=== PATIENT | female | born 1990 | race Caucasian/White ===

== ENCOUNTER 2023-01-27 09:12 | Outpatient (CLI) | payer OTHER | END 2023-01-27 09:30 | disposition home or self-care (01) | LOC: RAD 09:12 | PROVIDERS: ATTEND Specialist | DX: N88.3 Incompetence of cervix uteri (principal) ==

== ENCOUNTER 2025-03-06 13:45 | Inpatient (IN) | payer OTHER ==
[~2025-03-06] VITALS: Ht 154.9 cm; Wt 66.2 kg
[2025-03-20 14:23] VITALS: BP 110/66
[2025-03-20 14:45] LABS: BASO % 0.2 % (0.1-1.2); EOS # 0.10 (0.04-0.54); EOS % 1.1 % (0.7-7.0); LYMPH # 2.12 (1.18-3.74); LYMPH % 24.1 % (19.3-53.1); MEAN PLATELET VOLUME 10.70 fl (9.4-12.4); MONO # 0.61 (0.24-0.82); MONO % 6.9 % (4.7-12.5); NEUT # 5.91 (1.56-6.13); NEUT % 67.5 % (34.0-71.1); RED CELL DISTRIBUTION WIDTH 13.1 % (11.6-14.4)
[2025-03-20 15:15] VITALS: BP 113/69
[2025-03-20 15:28] LABS: INR < 0.93
[2025-03-20 15:29] LABS: ALT/SGPT 28.0 U/L (12-78); AST/SGOT 21.0 U/L (15-37); BILIRUBIN TOTAL 0.32 mg/dL (0.3-1.2); BUN CREA RATIO 16.0 (7.0-25.0); CREATININE SERUM 0.56 mg/dL (0.55-1.02); GFR 124.67; GLOBULINA 3.7 G/DL (2.4-3.5); GLUCOSE FASTING 85.0 mg/dL (65-100); OSMOLALITY SERUM 275.0 MOSM/KG (275-295)
[2025-03-20] MEDS ORDERED: RINGERS SOLUTION,LACTATED 1,000 ML IV SCH (15:45)
[2025-03-20] MEDS ORDERED: MISOPROSTOL 25 MCG TABLET VAG NR (15:45)
[2025-03-20 19:30] VITALS: BP 118/70
[2025-03-20] MEDS ORDERED: MORPHINE SULFATE 4 MG/ML VIAL IV ONE (22:00)
[2025-03-20 23:31] VITALS: BP 111/63; O2SAT 100
[2025-03-21] VITALS (8 sets, daily range): BP systolic 98–139; BP diastolic 59–78
[2025-03-21] MEDS ORDERED: MORPHINE SULFATE 4 MG/ML VIAL IV ONE (02:00)
[2025-03-21] MEDS ORDERED: CITRIC ACID/SODIUM CITRATE 30 ML BLIST.PACK PO ONE (02:30)
[2025-03-21] MEDS ORDERED: OXYTOCIN 500 ML IV SCH (09:00)
[2025-03-21] MEDS ORDERED: PRENATE CHEWABLE1 MG PO (10:22)
[2025-03-21] MEDS ORDERED: CHLORHEXIDINE GLUCONATE 120 ML BOTTLE TOP ONE (13:30)
[2025-03-21] MEDS ORDERED: OXYTOCIN 1,000 ML IV SCH (13:30)
[2025-03-21] MEDS ORDERED: ERYTHROMYCIN BASE OPHT 1GM EACH TUBE OP ONE (14:30)
[2025-03-21] MEDS ORDERED: LIDOCAINE HCL 1% 10ML VIAL IJ ONE (14:30)
[2025-03-22 02:28] VITALS: BP 115/72
[2025-03-22 06:25] LABS: BASO % 0.1 % (0.1-1.2); EOS # 0.07 (0.04-0.54); EOS % 0.4 % (0.7-7.0); LYMPH # 2.55 (1.18-3.74); LYMPH % 15.6 % (19.3-53.1); MEAN PLATELET VOLUME 10.70 fl (9.4-12.4); MONO # 0.93 (0.24-0.82); MONO % 5.7 % (4.7-12.5); NEUT # 12.69 (1.56-6.13); NEUT % 77.8 % (34.0-71.1); RED CELL DISTRIBUTION WIDTH 13.2 % (11.6-14.4)
[2025-03-22 08:00] VITALS: BP 113/73
[2025-03-22] MEDS ORDERED: PNV,CALCIUM 72/IRON/FOLIC ACID 1 TAB TABLET PO SCH (09:00)
[2025-03-22] MEDS ORDERED: FERROUS SULFATE 325 MG TABLET.EC PO SCH (16:00)
[2025-03-22 16:43] VITALS: BP 122/76
[2025-03-23 03:04] VITALS: BP 103/62
[2025-03-23 09:02] VITALS: BP 125/78
== END 2025-03-23 12:22 | disposition home or self-care (01) | DRG 807 ==
LOC: LDR 03-20 13:39 → OB/GYN 03-21 13:45
PROVIDERS: Obstetrics & Gynecology; ADMIT Obstetrics & Gynecology Maternal & Fetal Medicine; ATTEND Obstetrics & Gynecology Maternal & Fetal Medicine
PROC: 3E0P7VZ Introduction of Hormone into Female Reproductive, Via Natural or Artificial Opening (ICD-10-PCS; 2025-03-20)
PROC: 4A1HXCZ Monitoring of Products of Conception, Cardiac Rate, External Approach (ICD-10-PCS; 2025-03-20)
PROC: 10D07Z6 Extraction of Products of Conception, Vacuum, Via Natural or Artificial Opening (ICD-10-PCS; principal; 2025-03-21)
PROC: 0KQM0ZZ Repair Perineum Muscle, Open Approach (ICD-10-PCS; 2025-03-21)
PROC: 3E033VJ Introduction of Other Hormone into Peripheral Vein, Percutaneous Approach (ICD-10-PCS; 2025-03-21)
PROC: BU4CZZZ Ultrasonography of Uterus and Ovaries (ICD-10-PCS; 2025-03-22)
DX: O70.1 Second degree perineal laceration during delivery (principal); Z37.0 Single live birth; O66.5 Attempted application of vacuum extractor and forceps; Z3A.40 40 weeks gestation of pregnancy